=== PATIENT | female | born 1970 | race American Indian/Alaskan Native ===

== ENCOUNTER 2017-11-15 11:08 | Emergency (ER) | payer BC, OTHER ==
[2017-11-15 11:52] VITALS: O2SAT 98; BMI 39.2
--- NOTE | 2017-11-15 12:01 | ED PDOC ---
Arrival/HPI - General Chief Complaint: Lower Extremity Problem/Injury Time Seen by Provider: 11/15/17 11:43 Historian: Patient - History of Present Illness Narrative History of Present Illness (Text): 11/15/17 11:59 47yo female with pmhx of hypertension, Diabetes who present with right foot pain. States pain is usually with weight bearing after sitting for a while. States she takes Tylenol without relieve. Report tripping over uneven side walk and injuring same foot. States the pain became worse after the trauma. Denies any other complaint. Past Medical History - Provider Review Nursing Documentation Reviewed: Yes - Infectious Disease Hx of Infectious Diseases: None - Tetanus Immunization Tetanus Immunization: Unknown - Cardiac Hx Hypertension: Yes - Pulmonary Hx Respiratory Disorders: No - Neurological Hx Neurological Disorder: No - HEENT Hx HEENT Disorder: No - Renal Hx Renal Disorder: No - Endocrine/Metabolic Hx Endocrine Disorders: Yes Hx Diabetes Mellitus Type 2: Yes - Hematological/Oncological Hx Blood Disorders: No - Integumentary Hx Dermatological Disorder: No - Musculoskeletal/Rheumatological Hx Musculoskeletal Disorders: No - Gastrointestinal Hx Gastrointestinal Disorders: No - Genitourinary/Gynecological Hx Genitourinary Disorders: No - Psychiatric Hx Depression: No Hx Substance Use: No - Surgical History Hx Section: Yes Hx Dilation and Curettage: Yes - Anesthesia Hx Anesthesia: Yes Hx Anesthesia Reactions: No Hx Malignant Hyperthermia: No - Suicidal Assessment Feels Threatened In Home Enviroment: No Family/Social History - Physician Review Nursing Documentation Reviewed: Yes Family/Social History: Unknown Family HX Smoking Status: Never Smoked Hx Alcohol Use: No Hx Substance Use: No Hx Substance Use Treatment: No Allergies/Home Meds Allergies/Adverse Reactions: Allergies No Known Allergies Allergy (Verified 11/15/17 11:45) Home Medications: Home Meds Medication Instructions Recorded Confirmed Glimepiride 4 mg PO DAILY 08/26/15 05/03/17 SITagliptin [Januvia] 25 mg PO DAILY 05/03/17 05/03/17 Valsartan 320 mg PO DAILY 05/03/17 05/03/17 Review of Systems - Physician Review All systems were reviewed & negative as marked: Yes - Review of Systems Constitutional: Normal Eyes: Normal ENT: Normal Respiratory: Normal Cardiovascular: Normal Gastrointestinal: Normal Genitourinary Female: Normal Musculoskeletal: Arthralgias (right foot pain) Skin: Normal Neurological: Normal Endocrine: Normal Hemo/Lymphatic: Normal Psychiatric: Normal Physical Exam Vital Signs Reviewed: Yes Vital Signs Temp Pulse Resp BP Pulse Ox 11/15/17 12:09 181/110 H 11/15/17 11:45 97.7 F 81 18 181/110 H 98 Temperature: Afebrile Blood Pressure: Hypertensive Pulse: Regular Respiratory Rate: Normal Appearance: Positive for: Well-Appearing, Non-Toxic, Comfortable Pain Distress: None Mental Status: Positive for: Alert and Oriented X 3 - Systems Exam Head: Present: Atraumatic, Normocephalic Pupils: Present: PERRL Extroacular Muscles: Present: EOMI Conjunctiva: Present: Normal Mouth: Present: Moist Mucous Membranes Neck: Present: Normal Range of Motion Respiratory/Chest: Present: Clear to Auscultation, Good Air Exchange. No: Respiratory Distress, Accessory Muscle Use Cardiovascular: Present: Regular Rate and Rhythm, Normal S1, S2. No: Murmurs Abdomen: No: Tenderness, Distention, Peritoneal Signs Back: Present: Normal Inspection Upper Extremity: Present: Normal Inspection. No: Cyanosis, Edema Lower Extremity: Present: NORMAL PULSES, Normal ROM, Tenderness (Mid right plantar right foot), Neurovascularly Intact. No: Edema, Swelling, Erythema, Deformity, Temperature Abnormalties Neurological: Present: GCS=15, CN II-XII Intact, Speech Normal Skin: Present: Warm, Dry, Normal Color. No: Rashes Psychiatric: Present: Alert, Oriented x 3, Normal Insight, Normal Concentration Medical Decision Making ED Course and Treatment: 11/15/17 12:47 PT in ED for right foot pain. She was not in any distress. Pedis pulse was intact and they was no sign of infection. right foot xray - heel spur noted, otherwise xray was unremarkable. Pt report history of HTN. States she did not take her antihypertensive in 2days. She denies headache, focal weakness, slurred speech, chest pain, SOB, dizziness, any other complaint. Antihypertensive was given in ED. she was strongly advised to become more complaint with her medication. Will DC her with a rx of Ibuprofen. She have appointment with a P - RAD Interpretation Radiology Orders: 11/15/17 11:58 FOOT RIGHT 3 VIEWS ROUTINE [RAD] Stat - Medication Orders Current Medication Orders: Discontinued Medications Amlodipine Besylate (Norvasc) 10 mg PO STAT STA Stop: 11/15/17 12:04 Last Admin: 11/15/17 12:09 Dose: 10 mg MAR Blood Pressure Document 11/15/17 12:09 [facility] (Rec: 11/15/17 12:09 [facility] [id number]) Blood Pressure Blood Pressure (100/60-150/90) 181/110 Ketorolac Tromethamine (Toradol) 60 mg IM STAT STA Stop: 11/15/17 11:59 Last Admin: 11/15/17 12:08 Dose: 60 mg MAR Pain Assessment Document 11/15/17 12:08 [facility] (Rec: 11/15/17 12:09 LM [id number]) Pain Reassessment Is this a pain reassessment? No Sleep Is patient sleeping during reassessment? No Presence of Pain Presence of Pain Yes Pain Scale Used Pain Scale Used Numeric Location Left, Right or Bilateral Right Pain Location Body Site Foot Description Description Throbbing Intensity of Pain at present 9 IM Administration Charges Document 11/15/17 12:08 [facility] (Rec: 11/15/17 12:09 [facility] [id number]) Injection Site MAR Injection Site Left Arm Charges for Administration # of IM Administrations 1 Disposition/Present on Arrival - Present on Arrival Any Indicators Present on Arrival: No History of DVT/PE: No History of Uncontrolled Diabetes: Yes Urinary Catheter: No History of Decub. Ulcer: No History Surgical Site Infection Following: None - Disposition Have Diagnosis and Disposition been Completed?: Yes Diagnosis: Foot pain Disposition: HOME/ ROUTINE Disposition Time: 13:00 Patient Plan: Discharge Condition: STABLE Discharge Instructions (ExitCare): Heel Pain (Caused by Plantar Fasciitis), Muscle and Bone Pain (DC) Additional Instructions: Follow up with your Setup Operator Return to ED for any new or worsening symptoms Prescriptions: Ibuprofen [Motrin Tab] 600 mg PO Q6 #15 tab Referrals: Jose Pringle MD [Primary Care Provider] - Follow up with primary Forms: [employer] (Spanish)
--- NOTE | 2017-11-15 12:40 | RAD ---
PROCEDURE: Right Foot Radiographs. HISTORY: foot pain COMPARISON: None. FINDINGS: BONES: Normal. No fracture. JOINTS: Normal. SOFT TISSUES: Normal. OTHER FINDINGS: None. IMPRESSION: Normal right foot radiographs.
[2017-11-15 14:05] VITALS: BP 157/95; PULSE 75; RESP 17; TEMP 97.9
== END 2017-11-15 14:20 | disposition home or self-care (01) ==
LOC: ED 11:08
DX: M79.671 Pain in right foot (principal)
CPT/HCPCS: 73630; 96372; 99283; J1885

== ENCOUNTER 2018-10-02 08:47 | Inpatient (IN) | payer OTHER ==
[2018-10-02 08:52] VITALS: BMI 37.0
[2018-10-02] MEDS ORDERED: Sodium Chloride 0.9% 1,000 ML IV SCH (09:00)
--- NOTE | 2018-10-02 09:00 | ED PDOC ---
Arrival/HPI - General Time Seen by Provider: 10/02/18 08:49 - History of Present Illness Narrative History of Present Illness (Text): 10/02/18 09:00 48 f with hx hypertension and diabetes mellitus presents to the ED with acute left sided weakness and numbness, acute speech disturbance, left sided face numbness. Patient states she fell asleep last night feeling well, woke up in the middle of night to urinate but she is not sure what time, woke up with the above mentioned symptoms. Patient reports a posterior headache which she noticed when she woke up. Patient denies visual disturbance, no chest pain, no and pain, no prior hx of similiar symptoms. Patient also reports focal left upper chest wall pain, described as sharp, similiar to previous experienced pain. Patient accompanied by brother to the ED and he has corroborated the patient's story. 10/02/18 09:49 Past Medical History - Infectious Disease Hx of Infectious Diseases: None - Tetanus Immunization Tetanus Immunization: Unknown - Reproductive Menopause: No - Cardiac Hx Hypertension: Yes - Pulmonary Hx Respiratory Disorders: No - Neurological Hx Neurological Disorder: No - HEENT Hx HEENT Disorder: No - Renal Hx Renal Disorder: No - Endocrine/Metabolic Hx Endocrine Disorders: Yes Hx Diabetes Mellitus Type 2: Yes - Hematological/Oncological Hx Blood Disorders: No - Integumentary Hx Dermatological Disorder: No - Musculoskeletal/Rheumatological Hx Musculoskeletal Disorders: No - Gastrointestinal Hx Gastrointestinal Disorders: No - Genitourinary/Gynecological Hx Genitourinary Disorders: No - Psychiatric Hx Depression: No Hx Substance Use: No - Surgical History Hx Section: Yes Hx Dilation and Curettage: Yes - Anesthesia Hx Anesthesia: Yes Hx Anesthesia Reactions: No Hx Malignant Hyperthermia: No - Suicidal Assessment Feels Threatened In Home Enviroment: No Family/Social History Family/Social History: Unknown Family HX Smoking Status: Never Smoked Hx Alcohol Use: No Hx Substance Use: No Hx Substance Use Treatment: No Allergies/Home Meds Allergies/Adverse Reactions: Allergies No Known Allergies Allergy (Verified 11/15/17 11:45) Home Medications: Home Meds Medication Instructions Recorded Confirmed Unobtainable 10/02/18 10/02/18 Review of Systems - Physician Review All systems were reviewed & negative as marked: Yes Physical Exam - Physical Exam Narrative Physical Exam (Text): 10/02/18 09:03 Gen: VS reviewed, alert, well developed, well nourished, nontoxic, mild dist ress Eye: EOMI, PERRL Neck: no JVD, supple, no adenopathy CV: regular rate, regular rhythm, no rubs,no murmur, S1, S2, there is moderate clearly reproducible chest wall tenderness Pulm: no distress, clear to auscultation, no wheeze, no rhonchi, breath sounds equal, no rales Abd: soft, nontender, no guarding, no rebound, no rigidity Ext: no edema Skin: good color, no rash, no cyanosis Psych: responds appropriately to questions, normal affect Neuro: oriented x3,speech is clear but muted in tone, only some words are slurred, motor intact, diminished sensation in the left face and left arm, norm al sensation in the left leg, ataxia in the left upper arm, 4/5 strength in the left upper arm 10/02/18 09:49 Vital Signs Pulse Resp BP Pulse Ox 10/02/18 08:47 88 18 166/84 H 96 Medical Decision Making ED Course and Treatment: 10/02/18 09:05 patient seen immediately upon arrival. code stroke called immediately upon arrival. workup for CVA. 10/02/18 09:[address] gordon, neurologist, agrees that the patient is not a candidate for thrombolysis especially since there is no concrete last well known time. recommends empiric antiplatelet therapy, tx for migraine depakote 500mg iv, decadron 10mg iv ddx including but not limited to cva, complex migraine headache 10/02/18 10:01 it was reported to me that the patient failed swallow eval at bedside 10/02/18 10:[address] albrecht, patient to be admitte rule out cva. consult to dr. gordon. - RAD Interpretation Narrative RAD Interpretations (Text): 10/02/18 09:45 Creator : Paul Boothe MD Dictator : Paul Boothe MD Sales And Business Development Manager : Manufacturing Engineer Automotive : Paul Boothe MD Approver2 : Report Date : 10/02/2018 09:23:24 My Comment : Date of service: 10/02/2018 PROCEDURE: CT HEAD WITHOUT CONTRAST. HISTORY: Code Stroke COMPARISON: 12/22/2015 TECHNIQUE: Axial computed tomography images were obtained through the head/brain without intravenous contrast. Radiation dose: Total exam DLP = 842.71 mGy-cm. This CT exam was performed using one or more of the following dose reduction techniques: Automated exposure control, adjustment of the mA and/or kV according to patient size, and/or use of iterative reconstruction technique. FINDINGS: HEMORRHAGE: No intracranial hemorrhage. BRAIN: No mass effect or edema. No atrophy or chronic microvascular ischemic changes. VENTRICLES: Unremarkable. No hydrocephalus. CALVARIUM: Unremarkable. PARANASAL SINUSES: Unremarkable as visualized. No significant inflammatory changes. MASTOID AIR CELLS: Unremarkable as visualized. No inflammatory changes. OTHER FINDINGS: The report concurs with the preliminary [facility] report IMPRESSION: No acute intracranial findings 10/02/18 09:47 Date of service: 10/02/2018 PROCEDURE: CT Angiography of the neck with contrast HISTORY: code stroke COMPARISON: None. TECHNIQUE: Contiguous axial images of the neck were obtained from the level of the skull- base to the superior mediastinum in the arteriographic phase of enhancement. Coronal and sagittal reformats or also generated. IV contrast dose: 150 cc of Omni 350 Radiation dose: Total exam DLP = 525.83 mGy-cm. This CT exam was performed using one or more of the following dose reduction techniques: Automated exposure control, adjustment of the mA and/or kV according to patient size, and/or use of iterative reconstruction technique. FINDINGS: RIGHT CAROTID ARTERIES: There is a calcified eccentric plaque producing a mild degree of stenosis in the proximal internal carotid bilaterally. LEFT CAROTID ARTERIES: There is a calcified eccentric plaque producing a mild degree of stenosis in the proximal internal carotid bilaterally. VERTEBRAL ARTERIES: Right Vertebral Artery: Normal. Left Vertebral Artery: Normal. OTHER FINDINGS: no aortic atherosclerotic calcification or mural plaque present. IMPRESSION: There is a calcified eccentric plaque producing a mild degree of stenosis in the proximal internal carotid bilaterally. CT Angiography of the Brain. HISTORY: code stroke COMPARISON: None available. TECHNIQUE: CT angiography of the intracranial arteries was performed. Coronal and sagittal maximum intensity projection reformated images were generated. Radiation dose: Total exam DLP = 525.83 mGy-cm. This CT exam was performed using one or more of the following dose reduction techniques: Automated exposure control, adjustment of the mA and/or kV according to patient size, and/or use of iterative reconstruction technique. FINDINGS: INTERNAL CEREBRAL ARTERIES: Unremarkable. The skull base, petrous, cavernous and supraclinoid segments are bilaterally widely patent. ANTERIOR CEREBRAL ARTERIES: Unremarkable. A1 and A2 segments are widely patent. Smaller distal branches unremarkable, as visualized. MIDDLE CEREBRAL ARTERIES: Unremarkable. M1 and M2 segments are widely patent. Perisylvian branches grossly symmetric. POSTERIOR CIRCULATION: Basilar Artery: Unremarkable. Distal Vertebral Arteries: Unremarkable. Posterior Cerebral Arteries: Unremarkable. Posterior Inferior Cerebellar Arteries: Unremarkable. ANEURYSM/ VASCULAR MALFORMATIONS: None. OTHER FINDINGS: None. IMPRESSION: Unremarkable CT Angiography of the Brain. 10/02/18 09:48 cxr my read: no focal infiltrate, no wide mediastinum, cardiomegaly Radiology Orders: 10/02/18 08:55 CTA HEAD/NECK CODE STROKE [CT] Stat HEAD W/O (CODE STROKE) [CT] Stat CHEST PORTABLE [RAD] Stat Personnel And Payroll Technician: ED Physician, Radiologist - EKG Interpretation EKG Interpretation (Text): 10/02/18 09:49 ekg my read: nsr at 86 bpm, nml qrs, nml axis, no acute sttw abn Interpreted by ED Physician: Yes - Medication Orders Current Medication Orders: Sodium Chloride (Sodium Chloride 0.9%) 1,000 mls @ 100 mls/hr IV .Q10H [facility] NIHSS Scale ([place]) Time Performed: 08:58 - How Severe is the Stoke Baseline Level of Consciousness: 0=Alert LOC to Questions: 0=Both comments correct LOC to commands: 0=Obeys both correctly Best Gaze: 0=Normal Visual: 0=No visual loss Facial: 0=Normal Motor Arm - Left: 1=Drift noted before 10 sec Motor Arm - Right: 0=No drift Motor Leg - Left: 0=No drift Motor Leg - Right: 0=No drift Limb Ataxia: 1=Present Upper or Lower Sensory: 1=Mild to moderate loss Best Language: 0=No aphasia Dysarthia: 1=Mild to moderate slurring Extinction & Inattention (Neglect): 0=Normal, no object Score: 4 Risk Level: Minor Stroke Risk rTPA Inclusion/Exclusion - Refusal of Treatment Patient Refused Treatment: No - Inclusion Criteria for Altepase Patient is 18 years or Older: Yes The Clinical Diagnosis of Ischemic Stroke That is Causing a Potentially Disabling Neurological Deficit: Yes Time of Onset is Well Established to be Less Than 270 Minute Before Treatment Would Begin: No Risk/Benefit Discussed With Patient/Family Member Present: Yes Disposition/Present on Arrival - Present on Arrival Any Indicators Present on Arrival: No History of DVT/PE: No History of Uncontrolled Diabetes: Yes Urinary Catheter: No History of Decub. Ulcer: No History Surgical Site Infection Following: None - Disposition Have Diagnosis and Disposition been Completed?: Yes Diagnosis: CVA (cerebral vascular accident) Disposition: HOSPITALIZED Disposition Time: 10:35 Patient Plan: Admission Patient Problems: Current Active Problems Problem Status Onset CVA (cerebral vascular accident) Acute Transient ischemic attack Acute Condition: GUARDED
[2018-10-02 09:25] LABS: BASO # 0.01 K/mm3 (0.0-2.0); BASO % 0.2 % (0.0-3.0); EOS % 0.3 % (1.5-5.0); HEMOGLOBIN 12.1 g/dL (12.0-16.0); LYMPH # 1.4 (1.2-3.4); LYMPH % 21.1 % (22.0-35.0); MEAN CELL VOLUME 81.1 fl (80.0-105.0); MEAN CORPUSCULAR HEMOGLOBIN 27.5 pg (25.0-35.0); MEAN CORPUSCULAR HGB CONC 33.9 g/dl (31.0-37.0); MEAN PLATELET VOLUME 9.3 fl (7.0-11.0); MONO # 0.4 (0.1-0.6); MONO % 5.4 % (1.0-6.0); RBC 4.4 10^6/uL (3.5-6.1); RED CELL DISTRIBUTION WIDTH 12.2 % (11.5-14.5); WHITE BLOOD COUNT 6.5 10^3/uL (4.5-11.0)
--- NOTE | 2018-10-02 09:27 | CT ---
Date of service: 10/02/2018 PROCEDURE: CT HEAD WITHOUT CONTRAST. HISTORY: Code Stroke COMPARISON: 12/22/2015 TECHNIQUE: Axial computed tomography images were obtained through the head/brain without intravenous contrast. Radiation dose: Total exam DLP = 842.71 mGy-cm. This CT exam was performed using one or more of the following dose reduction techniques: Automated exposure control, adjustment of the mA and/or kV according to patient size, and/or use of iterative reconstruction technique. FINDINGS: HEMORRHAGE: No intracranial hemorrhage. BRAIN: No mass effect or edema. No atrophy or chronic microvascular ischemic changes. VENTRICLES: Unremarkable. No hydrocephalus. CALVARIUM: Unremarkable. PARANASAL SINUSES: Unremarkable as visualized. No significant inflammatory changes. MASTOID AIR CELLS: Unremarkable as visualized. No inflammatory changes. OTHER FINDINGS: The report concurs with the preliminary [facility] report IMPRESSION: No acute intracranial findings
[2018-10-02 09:29] LABS: INR 1.14; PARTIAL THROMBOPLASTIN TIME 32.2 Seconds (26.9-38.3); PROTHROMBIN TIME 12.9 SECONDS (9.4-12.5)
--- NOTE | 2018-10-02 09:40 | CT ---
Date of service: 10/02/2018 PROCEDURE: CT Angiography of the neck with contrast HISTORY: code stroke COMPARISON: None. TECHNIQUE: Contiguous axial images of the neck were obtained from the level of the skull-base to the superior mediastinum in the arteriographic phase of enhancement. Coronal and sagittal reformats or also generated. IV contrast dose: 150 cc of Omni 350 Radiation dose: Total exam DLP = 525.83 mGy-cm. This CT exam was performed using one or more of the following dose reduction techniques: Automated exposure control, adjustment of the mA and/or kV according to patient size, and/or use of iterative reconstruction technique. FINDINGS: RIGHT CAROTID ARTERIES: There is a calcified eccentric plaque producing a mild degree of stenosis in the proximal internal carotid bilaterally. LEFT CAROTID ARTERIES: There is a calcified eccentric plaque producing a mild degree of stenosis in the proximal internal carotid bilaterally. VERTEBRAL ARTERIES: Right Vertebral Artery: Normal. Left Vertebral Artery: Normal. OTHER FINDINGS: no aortic atherosclerotic calcification or mural plaque present. IMPRESSION: There is a calcified eccentric plaque producing a mild degree of stenosis in the proximal internal carotid bilaterally. CT Angiography of the Brain. HISTORY: code stroke COMPARISON: None available. TECHNIQUE: CT angiography of the intracranial arteries was performed. Coronal and sagittal maximum intensity projection reformated images were generated. Radiation dose: Total exam DLP = 525.83 mGy-cm. This CT exam was performed using one or more of the following dose reduction techniques: Automated exposure control, adjustment of the mA and/or kV according to patient size, and/or use of iterative reconstruction technique. FINDINGS: INTERNAL CEREBRAL ARTERIES: Unremarkable. The skull base, petrous, cavernous and supraclinoid segments are bilaterally widely patent. ANTERIOR CEREBRAL ARTERIES: Unremarkable. A1 and A2 segments are widely patent. Smaller distal branches unremarkable, as visualized. MIDDLE CEREBRAL ARTERIES: Unremarkable. M1 and M2 segments are widely patent. Perisylvian branches grossly symmetric. POSTERIOR CIRCULATION: Basilar Artery: Unremarkable. Distal Vertebral Arteries: Unremarkable. Posterior Cerebral Arteries: Unremarkable. Posterior Inferior Cerebellar Arteries: Unremarkable. ANEURYSM/ VASCULAR MALFORMATIONS: None. OTHER FINDINGS: None. IMPRESSION: Unremarkable CT Angiography of the Brain.
[2018-10-02 09:47] LABS: BLOOD UREA NITROGEN 11 mg/dL (7-21); CALCIUM 9.2 mg/dL (8.4-10.5); GFR NON-AFRICAN AMERICAN > 60
[2018-10-02 09:48] LABS: ALB/GLOB RATIO 1.1 (1.1-1.8); ALT/SGPT 23 U/L (7-56); AST/SGOT 25 U/L (14-36); HDL CHOLESTEROL 50 mg/dL (29-60)
[2018-10-02] MEDS ORDERED: Valproate 500 MG in Sodium Chloride 0.9% 100 ML IVPB ONE (09:53)
[2018-10-02 10:00] LABS: LDL CHOLESTEROL 111 mg/dL (0-129)
[2018-10-02 10:12] LABS: TROPONIN I < 0.01 ng/mL
--- NOTE | 2018-10-02 10:32 | RAD ---
Date of service: 10/02/2018 HISTORY: Code Stroke COMPARISON: No prior. TECHNIQUE: 1 view obtained. FINDINGS: LUNGS: No active pulmonary disease. PLEURA: No significant pleural effusion identified, no pneumothorax apparent. CARDIOVASCULAR: No aortic atherosclerotic calcification present. Normal cardiac size. No pulmonary vascular congestion. OSSEOUS STRUCTURES: No significant abnormalities. VISUALIZED UPPER ABDOMEN: Normal. OTHER FINDINGS: None. IMPRESSION: No active disease.
--- NOTE | 2018-10-02 16:45 | CP.PCM.CON ---
History of Present Illness - History of Present Illness History of Present Illness: Neurology Consultation Note: Consult requested by Dr. Mckenzie Ms. Story is a 48-year-old woman with a past medical history of DM, who woke up this morning with a headache and left side numbness. She was not a candidate for IV tPA due to being outside the 4.5 hour time window. Non-contrast CT head and CTA of the head/neck were normal. BP was elevated to 166/84 mm Hg on arrival. Her headache was treated with decadron, depakote and magnesium sulfate. She was given aspirin, plavix and lipitor in the ED. Since then, the patient's symptoms have completely resolved. Review of Systems - Constitutional Constitutional: As Per HPI - EENT Eyes: absent: As Per HPI, Blind Spots, Blurred Vision, Change in Vision, Decreased Night Vision, Diplopia, Discharge, Dry Eye, Exophthalmos, Floaters, Irritation, Itchy Eyes, Loss of Peripheral Vision, Pain, Photophobia, Requires Corrective Lenses, Sees Flashes, Spots in Vision, Tunnel Vision, Other Visual Disturbances, Loss of Vision, Other Ears: absent: As Per HPI, Decreased Hearing, Ear Discharge, Ear Pain, Tinnitus, Abnormal Hearing, Disequilibrium, Dizziness, Other Nose/Mouth/Throat: absent: As Per HPI, Epistaxis, Nasal Congestion, Nasal Discharge, Nasal Obstruction, Nasal Trauma, Nose Pain, Post Nasal Drip, Sinus Pain, Sinus Pressure, Bleeding Gums, Change in Voice, Dental Pain, Dry Mouth, Dysphagia, Halitosis, Hoarsness, Lip Swelling, Mouth Lesions, Mouth Pain, Odynophagia, Sore Throat, Throat Swelling, Tongue Swelling, Facial Pain, Neck Pain, Neck Mass, Other - Cardiovascular Cardiovascular: absent: As Per HPI, Acrocyanosis, Chest Pain, Chest Pain at Rest, Chest Pain with Activity, Claudication, Diaphoresis, Dyspnea, Dyspnea on Exertion, Edema, Irregular Heart Rhythm, Pain Radiating to Arm/Neck/Jaw, Leg Edema, Leg Ulcers, Lightheadedness, Orthopnea, Palpitations, Paroxysmal Nocturnal Dyspnea, Pedal Edema, Radiating Pain, Rapid Heart Rate, Slow Heart Rate, Syncope, Other - Respiratory Respiratory: absent: As Per HPI, Cough, Dyspnea, Hemoptysis, Dyspnea on Exertion, Wheezing, Snoring, Stridor, Pain on Inspiration, Chest Congestion, Excessive Mucous Production, Change in Mucous Color, Pain with Coughing, Other - Gastrointestinal Gastrointestinal: absent: As Per HPI, Abdominal Pain, Belching, Bloating, Change in Bowel Habits, Change in Stool Character, Coffee Ground Emesis, Constipation, Cramping, Diarrhea, Dyspepsia, Dysphagia, Early Satiety, Excessive Flatus, Fecal Incontinence, Heartburn, Hematemesis, Hematochezia, Loose Stools, Melena, Nausea, Odynophagia, Temesmus, Vomiting, Other - Genitourinary Genitourinary: absent: As Per HPI, Change in Urinary Stream, Difficulty Urinating, Dysuria, Flank Pain, Hematuria, Pyuria, Nocturia, Urinary Inc ontinence, Urinary Frequency, Urinary Hesitance, Urinary Urgency, Voiding Freq/Small Amts, Freq UTI, Hx Renal/Bladder Calculi, Hx /Renal Surgery, Bladder Distension, Other - Musculoskeletal Musculoskeletal: absent: As Per HPI, Abnormal Gait, Arthralgias, Atrophy, Back Pain, Deformity, Joint Swelling, Limited Range of Motion, Loss of Height, Muscle Cramps, Muscle Weakness, Myalgias, Neck Pain, Numbness, Radiating Pain into Limb, Stiffness, Tingling, Other - Integumentary Integumentary: absent: As Per HPI, Acne, Alopecia, Bleeding Lesions, Change in Hair, Change in Nails, Change in Pigmentation, Changing Lesions, Dry Skin, Erythema, Furuncle, Hirsutism, Lesions, New Lesions, Non-Healing Lesions, Photosensitivity, Pruritus, Rash, Skin Pain, Skin Ulcer, Sores, Striae, Swelling, Unusual Bruising, Wounds, Jaundice, Other - Neurological Neurological: As Per HPI - Psychiatric Psychiatric: absent: As Per HPI, Abnormal Sleep Pattern, Anhedonia, Anxiety, Auditory Hallucinations, Behavioral Changes, Change in Appetite, Change in Libido, Confusion, Depression, Difficulty Concentrating, Hallucinations, Homicidal Ideation, Hopelessness, Irritability, Memory Loss, Mood Swings, Panic Attacks, Paranoia, Suicidal Ideation, Visual Hallucinations, Tactile Hallucinations, Other - Endocrine Endocrine: absent: As Per HPI, Change in Body Appearance, Change in Libido, Cold Intolorance, Deepening of Voice, Excessive Sweating, Fatigue, Flushing, Heat Intolorance, Increase in Ring/Shoe/Hat Size, Palpitations, Polydipsia, Polyphagia, Polyuria, Other - Hematologic/Lymphatic Hematologic: absent: As Per HPI, Easy Bleeding, Easy Bruising, Lymphadenopathy, Other Past Patient History - Infectious Disease Hx of Infectious Diseases: None - Tetanus Immunizations Tetanus Immunization: Unknown - Past Medical History & Family History Past Medical History?: Yes - Past Social History Smoking Status: Never Smoked - CARDIAC Hx Hypertension: Yes - PULMONARY Hx Respiratory Disorders: No - NEUROLOGICAL Hx Neurological Disorder: No - HEENT Hx HEENT Problems: No - RENAL Hx Chronic Kidney Disease: No - ENDOCRINE/METABOLIC Hx Diabetes Mellitus Type 2: Yes - HEMATOLOGICAL/ONCOLOGICAL Hx Blood Disorders: No - INTEGUMENTARY Hx Dermatological Problems: No - MUSCULOSKELETAL/RHEUMATOLOGICAL Hx Musculoskeletal Disorders: No Hx Falls: No - GASTROINTESTINAL Hx Gastrointestinal Disorders: Yes (polys) Other/Comment: polyps - GENITOURINARY/GYNECOLOGICAL Hx Genitourinary Disorders: No - PSYCHIATRIC Hx Psychophysiologic Disorder: No Hx Substance Use: No - SURGICAL HISTORY Hx Surgeries: Yes () - ANESTHESIA Hx Anesthesia: Yes Hx Anesthesia Reactions: No Hx Malignant Hyperthermia: No Meds Allergies/Adverse Reactions: Allergies Allergy/AdvReac Type Severity Reaction Status Date / Time No Known Allergies Allergy Verified 11/15/17 11:45 - Medications Medications: Current Medications Atorvastatin Calcium (Lipitor) 10 mg PO DIN KSENIA Sodium Chloride (Sodium Chloride 0.9%) 1,000 mls @ 100 mls/hr IV .Q10H KSENIA Last Admin: 10/02/18 09:21 Dose: 100 mls/hr Results - Vital Signs Recent Vital Signs: Last Vital Signs Temp 98.7 F 10/02/18 11:51 Pulse 90 10/02/18 12:29 Resp 18 10/02/18 12:29 BP 141/77 10/02/18 11:51 Pulse Ox 98 10/02/18 11:51 - Labs Result Diagrams: 10/02/18 09:11 10/02/18 09:11 Labs: Laboratory Results - last 24 hr 10/02/18 10/02/18 10/02/18 08:58 09:11 09:11 WBC 6.5 RBC 4.40 Hgb 12.1 Hct 35.7 L MCV 81.1 MCH 27.5 MCHC 33.9 RDW 12.2 Plt Count 377 MPV 9.3 Neut % (Auto) 73.0 H Lymph % (Auto) 21.1 L Ware % (Auto) 5.4 Eos % (Auto) 0.3 L Baso % (Auto) 0.2 Lymph # (Auto) 1.4 Ware # (Auto) 0.4 Eos # (Auto) 0.0 Baso # (Auto) 0.01 Absolute Neuts (auto) 4.78 PT 12.9 H INR 1.14 APTT 32.2 Sodium Potassium Chloride Carbon Dioxide Anion Gap BUN Creatinine Est GFR ( Amer) Est GFR (Non-Af Amer) POC Glucose (mg/dL) 209 H Random Glucose Hemoglobin A1c Calcium Total Bilirubin AST ALT Alkaline Phosphatase Troponin I Total Protein Albumin Globulin Albumin/Globulin Ratio Triglycerides Cholesterol LDL Cholesterol Direct HDL Cholesterol Blood Type Antibody Screen BBK History Checked 10/02/18 10/02/18 10/02/18 09:11 09:11 09:14 WBC RBC Hgb Hct MCV MCH MCHC RDW Plt Count MPV Neut % (Auto) Lymph % (Auto) Ware % (Auto) Eos % (Auto) Baso % (Auto) Lymph # (Auto) Ware # (Auto) Eos # (Auto) Baso # (Auto) Absolute Neuts (auto) PT INR APTT Sodium 136 Potassium 4.1 Chloride 100 Carbon Dioxide 25 Anion Gap 14 BUN 11 Creatinine 0.8 Est GFR ( Amer) > 60 Est GFR (Non-Af Amer) > 60 POC Glucose (mg/dL) Random Glucose 223 H Hemoglobin A1c 11.9 H Calcium 9.2 Total Bilirubin 0.8 AST 25 ALT 23 Alkaline Phosphatase 94 Troponin I < 0.01 Total Protein 7.6 Albumin 4.0 Globulin 3.6 Albumin/Globulin Ratio 1.1 Triglycerides 91 Cholesterol 196 LDL Cholesterol Direct 111 HDL Cholesterol 50 Blood Type B POSITIVE Antibody Screen Negative BBK History Checked Patient has bt 10/02/18 16:00 WBC RBC Hgb Hct MCV MCH MCHC RDW Plt Count MPV Neut % (Auto) Lymph % (Auto) Ware % (Auto) Eos % (Auto) Baso % (Auto) Lymph # (Auto) Ware # (Auto) Eos # (Auto) Baso # (Auto) Absolute Neuts (auto) PT INR APTT Sodium Potassium Chloride Carbon Dioxide Anion Gap BUN Creatinine Est GFR ( Amer) Est GFR (Non-Af Amer) POC Glucose (mg/dL) 400 H* Random Glucose Hemoglobin A1c Calcium Total Bilirubin AST ALT Alkaline Phosphatase Troponin I Total Protein Albumin Globulin Albumin/Globulin Ratio Triglycerides Cholesterol LDL Cholesterol Direct HDL Cholesterol Blood Type Antibody Screen BBK History Checked Assessment & Plan (1) Transient ischemic attack Assessment and Plan: The patient does not currently have any symptoms. Her headache is gone, speech is normal and she has full sensation of the left side. She may have had a TIA or possibly a complicated migraine headache. Will continue dual antiplatelet therapy, high dose statin for now and obtain an MRI of the brain without contrast for further evaluation. Thank you for this consultation. Status: Acute
--- NOTE | 2018-10-02 17:53 | CARD ---
APPROVED REPORT Date of service: 10/02/2018 EKG Measurement Heart [id number] <Conclusion> Normal sinus rhythm Normal ECG
[2018-10-02] MEDS ORDERED: Insulin Regular 1 UNITS/0.01 ML ML SC ONE (20:05)
[2018-10-02] MEDS ORDERED: Insulin Reg-LOW-Coverage SC SCH (22:00)
[2018-10-02] MEDS: Insulin Reg-LOW-Coverage SC SCH (22:02)
--- NOTE | 2018-10-02 23:03 | CON ---
DATE: 10/02/2018 CONSULT SERVICE: Cardiology. REASON FOR CONSULTATION: Cardiac evaluation, admitted with numbness of the left side of the body, also complains of chest pain (breast pain). BRIEF CLINICAL HISTORY: This is a 48-year-old female with past medical history of obesity, body mass index 37 kg/m2, admitted with complaint of numbness of the left side of the body, who came to the emergency room. While the patient was in 2R also complaining of left breast pain and right breast pain, more so in the left breast. 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 The patient denies any dyspnea on exertion or chest pain on exertion or prior episode of dyspnea on exertion, though she is admitted here with left-side numbness all over the body. Denies any drooling of saliva or denies any double vision or denies any slurring of speech. PAST MEDICAL HISTORY: Significant for hypertension, unknown medication. PAST SURGICAL HISTORY: Significant for section and D and C 6 years ago. History of mammogram found to be according to the patient is a galactocele. FAMILY HISTORY: Significant for coronary artery disease. Father had a stent at the age of 55. SOCIAL HISTORY: Denies any smoking, denies any history of alcohol abuse. CURRENT MEDICATIONS: Anti-hypertensive medication, name unknown. ALLERGIES: NO KNOWN DRUG ALLERGY. REVIEW OF SYSTEMS: As per HPI. PHYSICAL EXAMINATION: GENERAL: Height of the patient 5 feet 3 inches, weight of the patient 209 pounds, body mass index 37 kg/m2. VITAL SIGNS: Temperature afebrile, heart rate 92, blood pressure 141/77. HEENT: PERRLA. Extraocular muscles intact. NECK: Supple. No carotid bruit or thyromegaly. CHEST: Clear to auscultation. HEART: S1 and S2, regular. ABDOMEN: Soft. EXTREMITIES: Clubbing and cyanosis negative. LABORATORY DATA: Blood workup as follows; WBC 6.5, hemoglobin 12, hematocrit 35.7, and platelet count 377. Chemistry shows sodium 137, potassium 4, chloride 100, CO2 of 25, anion gap of 14, BUN 11, creatinine 0.8. Troponin is 0.01 negative. EKG shows sinus tachycardia and was within the normal limits. ASSESSMENT: A 48-year-old obese female with body mass index of 37 kg/m2 with history of galactocele, came in with left-sided numbness, now complaining of chest pain (breast pain in the left side which is tender as well as right side), though the chest pain appears to be atypical, but given the multiple risk factors of coronary artery disease, suggest echocardiography, now lipid profile, TSH, hemoglobin A1c, Neurology evaluation and also suggest a mammogram and followup for galactocele and breast pain. Also suggest a stress test in four weeks as an outpatient. We will put a low dose of Lipitor and aspirin for type of symptoms. Thank you Dr. Mckenzie for providing us the opportunity in taking care of the patient, Carol Story. Raghav Haney MD cc: Tricia Mckenzie MD
--- NOTE | 2018-10-03 04:33 | HP ---
DATE OF EXAM: 10/02/2018 CHIEF COMPLAINT: Chest pain. HISTORY OF PRESENT ILLNESS: Patient is a 48-year-old female. Patient was seen and examined at the bedside on 10/02/2018. Ms. Carol Story is a 48-year-old female with past medical history of hypertension and diabetes mellitus, came to the emergency room with acute left-sided weakness and numbness, acute speech disturbances, left-sided facial numbness, and chest pain. Patient stated that she self sleep last night feeling well, woke up in the middle of night to urinate, but she is not sure what happened. She felt that she has weakness. She reports posterior headache which she noticed when she woke up. Patient denies any visual disturbances. No fever. No chills. No hematuria. No hematochezia. Patient also reports focal left upper chest wall pain described as sharp similar to previous experienced pain. I saw the patient in the telemetry for Cardiology consult. Cardiac enzymes ordered. PAST MEDICAL HISTORY: Hypertension, diabetes mellitus, past history of sections, history of headache. FAMILY HISTORY: Father and mother noncontributory. HABITS: Never smoked. No drugs. No ethanol. ALLERGIES: PATIENT IS NOT ALLERGIC TO ANY MEDICATIONS. HOME MEDICATIONS: Denied. REVIEW OF SYSTEMS: Patient is seen and examined at bedside in her room telemetry, looking comfortable at that moment. No fever no chills. No hematuria. No hematochezia. No weakness. Complaining about left-sided slight chest pain. No headache. No dizziness. PHYSICAL EXAMINATION VITAL SIGNS: Pulse 88, respiratory rate 18, blood pressure 166/84, pulse oximetry 96. HEENT: Head normocephalic, atraumatic. Eyes; PERRLA, extraocular muscles intact, conjunctivae clear. Nose patent. Mucous membrane moist. NECK: Supple. No carotid bruits. No JVD. No thyromegaly. CHEST: Bilaterally symmetrical. HEART: S1 and S2 positive. LUNGS: Clear to auscultation. ABDOMEN: Soft. Bowel sounds present. No organomegaly. EXTREMITIES: No edema. No cyanosis. NEUROLOGIC: The patient is awake and alert. Moving all four extremities. No focal deficits. LABORATORY DATA: White blood cells 6.5, hemoglobin 12.1, hematocrit 35.7, and platelets 377. Sodium 136, potassium 4.1, BUN 11, creatinine 0.8, glucose 209. Hemoglobin A1c is 11.9. Troponin x1 is 0.01. ASSESSMENT AND PLAN: Ms. Carol Story is a 48-year-old lady with diabetes mellitus uncontrolled, hemoglobin A1c is 11.9, came with chest pain and weakness. CAT scan of the head was done. No acute intracranial findings. CAT scan of the head and neck done. Unremarkable CT angio of the brain. MRI is done, results are pending. Seen by the neurologist, Dr. Gopal San and account analyst, Dr. Haney. Patient has a history of diabetes mellitus, headache, left-sided numbness. Patient's symptoms completely resolved. Patient was given aspirin, Plavix, and Lipitor in ED. labeled it like transient ischemic attack. Now, speech is normal, having full sentences. Maybe, patient has complicated migraine as per neurologist. We will continue dual antiplatelet therapy, high-dose statin for now and obtain an MRI of the brain that is done, results are pending. Called Cardiology consult also, awaiting from Dr. Haney's input. Repeat labs. We will follow up. Tricia Mckenzie MD MTDReal
--- NOTE | 2018-10-03 05:20 | MRI ---
Date of service: 10/02/2018 PROCEDURE: MRI BRAIN WITHOUT CONTRAST HISTORY: stroke COMPARISON: Comparison is made with the CT and CTA of the head dated 10/02/2018 TECHNIQUE: Multiplanar, multisequence MR images of the brain were obtained without intravenous contrast enhancement. FINDINGS: HEMORRHAGE: None DWI: No evidence of an acute or early subacute infarction. BRAIN PARENCHYMA: No mass effect or edema. No atrophy or chronic microvascular ischemic changes. VENTRICLES: Unremarkable. No hydrocephalus. CRANIUM: Unremarkable. ORBITS: Grossly unremarkable. PARANASAL SINUSES/MASTOIDS: Clear VASCULAR SYSTEM: Skull base flow voids intact. OTHER FINDINGS: None. IMPRESSION: No evidence of acute infarction. No MRI evidence of acute intracranial hemorrhage mass effect or midline shift. Preliminary report was submitted by [facility] contains concordant findings.
[2018-10-03 07:15] LABS: BLOOD UREA NITROGEN 25 mg/dL (7-21); GFR NON-AFRICAN AMERICAN > 60; HDL CHOLESTEROL 52 mg/dL (29-60)
[2018-10-03 07:23] LABS: LDL CHOLESTEROL 119 mg/dL (0-129)
[2018-10-03 07:27] LABS: IRON 33 ug/dL (45-180)
[2018-10-03 07:30] LABS: HEMOGLOBIN 11.6 g/dL (12.0-16.0); MEAN CELL VOLUME 80.6 fl (80.0-105.0); MEAN CORPUSCULAR HEMOGLOBIN 27.4 pg (25.0-35.0); MEAN PLATELET VOLUME 9.5 fl (7.0-11.0); RBC 4.23 10^6/uL (3.5-6.1); RED CELL DISTRIBUTION WIDTH 12.2 % (11.5-14.5)
[2018-10-03 07:36] LABS: % IRON SATURATION 10 % (20-55); TOTAL IRON BINDING CAPACITY 325 ug/dL (265-497)
--- NOTE | 2018-10-03 08:22 | CP.PCM.PN ---
Subjective - Date & Time of Evaluation Date of Evaluation: 10/03/18 Time of Evaluation: 06:35 - Subjective Subjective: Easily awaken, denies chest pain, no distress Reason for consultation and follow up: Cardiac evaluation of chest pain (breast pain), admitted for numbness of left side of body, ruled out acute coronary syndrome Seen and examined by me and Dr. Haney Objective - Vital Signs/Intake and Output Vital Signs (last 24 hours): Temp Pulse Resp BP Pulse Ox 98 F 83 20 131/75 94 L 10/03/18 06:00 10/03/18 06:00 10/03/18 06:00 10/03/18 06:00 10/03/18 06:00 Intake and Output: 10/03/18 10/03/18 06:59 18:59 Intake Total 350 Output Total 0 Balance 350 - Medications Medications: Current Medications Atorvastatin Calcium (Lipitor) 10 mg PO DIN KSENIA Last Admin: 10/02/18 17:34 Dose: 10 mg Insulin Human Regular (Humulin R Low) 0 units SC [facility]; Protocol Last Admin: 10/02/18 22:02 Dose: 4 units - Labs Labs: 10/03/18 06:30 10/03/18 06:30 PT 12.9 SECONDS (9.4-12.5) H 10/02/18 09:11 INR 1.14 10/02/18 09:11 APTT 32.2 Seconds (26.9-38.3) 10/02/18 09:11 - Constitutional Appears: Non-toxic, No Acute Distress - Head Exam Head Exam: NORMAL INSPECTION, NORMOCEPHALIC - Eye Exam Eye Exam: Normal appearance Pupil Exam: NORMAL ACCOMODATION - ENT Exam ENT Exam: Mucous Membranes Moist, Normal Exam - Respiratory Exam Respiratory Exam: Clear to Ausculation Bilateral, NORMAL BREATHING PATTERN - Cardiovascular Exam Cardiovascular Exam: REGULAR RHYTHM, +S1, +S2 - GI/Abdominal Exam GI & Abdominal Exam: Soft, Normal Bowel Sounds - Extremities Exam Extremities Exam: Full ROM, Normal Capillary Refill - Neurological Exam Neurological Exam: Alert, Awake, Oriented x3 - Psychiatric Exam Psychiatric exam: Normal Affect, Normal Mood - Skin Skin Exam: Dry, Normal Color, Warm Assessment and Plan - Assessment and Plan (Free Text) Assessment: A 48 year old obese female who came in to the ER due to numbness of left side of body. While in 2R she complained of chest pain but more of breast pain. She had mammogram prior to this admission and was told that she has galactocele and milk collected there and causing tenderness. History of hypertension , diabetes, C- section, dilatation and currettage. Troponin negative, CT of head negative for bleeding. Neuro on consult. Atypical chest pain. Ruled out acute coronary syndrome. Given multiple risk factors, Will order echo to evaluate LV function. For stress test today. Plan: No distress For Echo today For stress test today Heart rate controlled Blood pressure controlled Continue current treatment Further recommendations after stress test Lifestyle modification Weight reduction Glucose control Will follow up Plan and treatment discussed with Dr. Haney
[2018-10-03] MEDS: Insulin Reg-LOW-Coverage SC SCH ×2 (08:39→12:31)
[2018-10-03 13:11] LABS: FOLATE 15.8 ng/mL
[2018-10-03] MEDS: Insulin Reg-MEDIUM-Coverage SC SCH ×2 (17:57→21:44)
--- NOTE | 2018-10-03 18:26 | CARD ---
APPROVED REPORT Date of service: 10/03/2018 EXAM: Two-dimensional and M-mode echocardiogram with Doppler and color Doppler. INDICATION Chest Pain 2D DIMENSIONS Left Atrium (2D)3.9 (1.6-4.0cm)IVSd1.3 (0.7-1.1cm) LVDd3.9 (3.9-5.9cm)PWd1.2 (0.7-1.1cm) LVDs2.6 (2.5-4.0cm)FS (%) 34.1 % LVEF (%)63.7 (>50%) M-Mode DIMENSIONS Aortic Root2.70 (2.2-3.7cm)Aortic Cusp Exc.1.80 (1.5-2.0cm) Aortic Valve AoV Peak Qiuegqtl282.0cm/Alex Peak GR.11mmHg Mitral Valve MV E Ebkfcmbd03.5cm/sMV A Ewjdsebz78.4cm/sE/A ratio1.1 TDI E/Lateral E'0.0E/Medial E'0.0 Tricuspid Valve TR Peak [id number]/sRAP [id number] Peak Gr.8mmHg [id number] LEFT VENTRICLE The left ventricle is normal size. There is borderline concentric left ventricular hypertrophy. Proximal septal thickening is noted, but no IHSS. The left ventricular function is normal.[id number]% There is normal LV segmental wall motion. The left ventricular diastolic function is normal. No left ventricle thrombus noted on this study. There is no ventricular septal defect visualized. There is no left ventricular aneurysm. There is no mass noted in the left ventricle. RIGHT VENTRICLE The right ventricle is normal size. There is normal right ventricular wall thickness. The right ventricular systolic function is normal. ATRIA The left atrium size is normal. The right atrium size is normal. The interatrial septum is intact with no evidence for an atrial septal defect. AORTIC VALVE The aortic valve is thickened but opens well. There is trace aortic regurgitation. There is no aortic valvular stenosis. There is no aortic valvular vegetation. MITRAL VALVE The mitral valve is thickened but opens well. Mitral regurgitation is trace. There is no mitral valve stenosis. There is no evidence of mitral valve prolapse. TRICUSPID VALVE The tricuspid valve leaflets are thickened , but open well. There is trace tricuspid regurgitation. There is no tricuspid valve stenosis. There is no tricuspid valve prolapse or vegetation. PULMONIC VALVE The pulmonary valve is normal in structure. There is trace pulmonic valvular regurgitation. There is no pulmonic valvular stenosis. GREAT VESSELS The aortic root is normal in size. The ascending aorta is normal in size. The pulmonary artery is normal. The IVC is normal in size and collapses >50% with inspiration. PERICARDIAL EFFUSION There is no pleural effusion. There is no pericardial effusion. <Conclusion> Normal chamber Size. Ef-60-65% There is trace aortic regurgitation. Mitral regurgitation is trace. There is trace tricuspid regurgitation. There is trace pulmonic valvular regurgitation. The IVC is normal in size and collapses >50% with inspiration. There is no pericardial effusion. no vegetation or thrombus noted.
--- NOTE | 2018-10-04 02:08 | PN ---
DATE: 10/03/2018 SUBJECTIVE: The patient is a 48-year-old female. The patient was seen and examined at the bedside 10/03/2018, looking comfortable. No fever. No chills. No hematuria. No hematochezia. No headache. No dizziness, but complaining about abdominal pain left lower quadrant. PHYSICAL EXAMINATION: VITAL SIGNS: Temperature 98, pulse 83, respiratory rate 20, blood pressure 130/75, and pulse oximetry 94. HEENT: Head; normocephalic and atraumatic. Eyes; PERRLA. Extraocular muscles intact. Conjunctivae clear. Nose patent. Mucous membranes moist. NECK: Supple. No carotid bruits, JVD, or thyromegaly. CHEST: Bilaterally symmetrical. HEART: S1 and S2 positive. LUNGS: Clear to auscultation. ABDOMEN: Soft. Bowel sounds present. No organomegaly. EXTREMITIES: No edema. No cyanosis. NEUROLOGIC: The patient is awake and alert. Moving all four extremities. No focal deficits. MEDICATIONS: Lipitor and insulin. LABORATORY DATA: White blood cell 8, hemoglobin 11.6, hematocrit 34.1, and platelet 418. ASSESSMENT AND PLAN: Ms. Carol Story is a 48-year-old female with anemia, came with chest pain, has hyperglycemia, and uncontrolled diabetes mellitus. The patient was on sliding scale of low algorithm, I put her on medium algorithm now. Chest pain is better. History of hypertension, section, and dilation and curettage. Troponin negative. CT of head is negative for bleeding. Neurology is on the case. According to Cardiology, the patient has atypical chest pain, rule out acute coronary syndrome. Given the multiple risk factors, we will order echocardiogram to evaluate left ventricular function for this stress test today as per Cardiology. According to Dr. Haney, there is no evidence of myocardial infarction or coronary ischemia because recent history of transient ischemic attack, we will hold stress test and has been schedule as outpatient in 4 weeks. Atypical chest pain form the both breasts possibly galactocele, need mammogram and gynecology as outpatient. GI consult with Dr. Sevilla. Repeat lab. We will follow up. Tricia Mckenzie MD MTDReal
--- NOTE | 2018-10-04 06:38 | CP.PCM.PN ---
Subjective - Date & Time of Evaluation Date of Evaluation: 10/04/18 Time of Evaluation: 06:30 - Subjective Subjective: Awake, sitting on chair, denies chest pain, constipated last BM Wednesday Reason for consultation and follow up: Cardiac evaluation of chest pain (breast pain), admitted for numbness of left side of body, ruled out acute coronary syndrome Seen and examined by me and Dr. Haney Objective - Vital Signs/Intake and Output Vital Signs (last 24 hours): Temp Pulse Resp BP Pulse Ox 97.7 F 68 18 135/78 97 10/04/18 05:24 10/04/18 05:24 10/04/18 05:24 10/04/18 05:24 10/04/18 05:24 Intake and Output: 10/03/18 10/04/18 18:59 06:59 Intake Total 1080 Output Total 4 Balance 1076 - Medications Medications: Current Medications Aspirin (Ecotrin) 81 mg PO DAILY [facility] Atorvastatin Calcium (Lipitor) 10 mg PO DIN [facility] Last Admin: 10/03/18 17:57 Dose: 10 mg Famotidine (Pepcid) 40 mg PO HS [facility] Insulin Detemir (Levemir) 24 unit SC HS [facility] Insulin Human Lispro (Humalog Low) 0 units SC ACHS [facility]; Protocol Insulin Human Lispro (Humalog) 12 units SC AC [facility] Lactulose (Enulose) 10 gm PO ONCE STA Stop: 10/04/18 06:36 - Labs Labs: 10/03/18 06:30 10/03/18 06:30 PT 12.9 SECONDS (9.4-12.5) H 10/02/18 09:11 INR 1.14 10/02/18 09:11 APTT 32.2 Seconds (26.9-38.3) 10/02/18 09:11 - Constitutional Appears: Non-toxic, No Acute Distress - Head Exam Head Exam: NORMAL INSPECTION, NORMOCEPHALIC - Eye Exam Eye Exam: Normal appearance Pupil Exam: NORMAL ACCOMODATION - ENT Exam ENT Exam: Mucous Membranes Moist, Normal Exam - Respiratory Exam Respiratory Exam: Decreased Breath Sounds, Clear to Ausculation Bilateral, NORMAL BREATHING PATTERN - Cardiovascular Exam Cardiovascular Exam: +S1, +S2 - GI/Abdominal Exam GI & Abdominal Exam: Soft, Normal Bowel Sounds - Extremities Exam Extremities Exam: Full ROM, Normal Capillary Refill - Neurological Exam Neurological Exam: Alert, Awake, Oriented x3 - Psychiatric Exam Additional comments: upset - Skin Skin Exam: Dry, Normal Color, Warm Assessment and Plan - Assessment and Plan (Free Text) Assessment: A 48 year old obese female who came in to the ER due to numbness of left side of body. While in 2R she complained of chest pain but more of breast pain. She had mammogram prior to this admission and was told that she has galactocele and milk collected there and causing tenderness. History of hypertension , diabetes, C- section, dilatation and currettage. Troponin negative, CT of head negative for bleeding. Neuro on consult. Atypical chest pain. Ruled out acute coronary syndrome. Given multiple risk factors, for stress test in 4 weeks (due to recent TIA). Discontinued telemetry. Constipated. Echo done and showed LVEF 60-65%, trace aortic/mitral/tricuspid/pulmonic valve regurgitation. May discharge if cleared by Neurology. Plan: Echo done and showed LVEF 60-65%, trace aortic/mitral/tricuspid/pulmonic valve regurgitation. May discharge if cleared by Neurology. No distress, constipated Lactulose ordered Stress test in 4 weeks due to recent TIA Heart rate controlled Blood pressure controlled Continue current treatment Discharge planning Lifestyle modification Weight reduction Glucose control Will follow up Plan and treatment discussed with Dr. Haney
--- NOTE | 2018-10-04 07:18 | CON ---
DATE OF CONSULTATION: 10/03/2018 ENDOCRINOLOGY CONSULTATION ROOM: 272. HISTORY OF PRESENT ILLNESS: This is a 48-year-old female with known history of type 2 diabetes and hypertension, presenting here with an acute onset of left-sided weakness in both upper and lower extremities with dysarthria and left-sided facial weakness and left-sided facial palsy, and is now undergoing neurological workup and management and is also being referred for diabetic evaluation because of persistent hyperglycemic accelerations as noted thereof. PAST MEDICAL HISTORY: As mentioned above, history of type 2 diabetes, previously on metformin given as 500 mg b.i.d., and glipizide at 10 mg once daily, history of hypertension and dyslipidemia. FAMILY HISTORY: Positive for diabetes and hypertension. SOCIAL HISTORY: The patient has supportive family. No known substance use. REVIEW OF SYSTEMS: Admits to bifrontal headaches with visual blurring and also episodic bouts of dizziness and lightheadedness, worse on the day of admission. Her energy level has been suboptimal with easy fatigability and tiredness. No chest pains or palpitations or PND. Her oral intake has been variable with nausea, dyspepsia and admits to marked polyuria, nocturia, and polydipsia. PHYSICAL EXAMINATION: GENERAL: An overweight female, in no apparent distress. VITAL SIGNS: Blood pressure of 150/90, pulse of 100 beats per minute, regular, temperature 98, respirations 20, height is 5 feet 3 inches, weight is 206 pounds. HEENT: Head, normocephalic. Eyes anicteric with pink conjunctivae. Fundoscopy not possible at this time. Ears, nose and throat otherwise normal. NECK: Supple. Thyroid gland is normal in size. No carotid bruits or cervical adenopathy. CARDIOPULMONARY: Some adynamic precordium. S1, S2 are rapid and regular. LUNGS: Clear to auscultation. ABDOMEN: Flat, soft with positive bowel sounds. EXTREMITIES: No peripheral edema. Pulses are +2 bilaterally. LABORATORY DATA: Her chemistry showed BUN of 25. Sodium 135, potassium 4, chloride 100, CO2 of 23, glucose 247, and creatinine 0.9. Her glucose levels have ranged from (8-400) and 439 mg/dL. It was 433 at dinnertime today and 260 at bedtime tonight. Her hemoglobin A1c is 11.9%. ASSESSMENT: This is a 48-year-old female with uncontrolled and decompensated type 2 insulin-requiring diabetes with marked hyperglycemic accelerations and clearly also a suboptimal metabolic control of her diabetic condition even prior to this admission with a markedly elevated A1c level as noted. 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 PLAN OF MANAGEMENT: We will initiate a basal and bolus insulin regimen, which is more physiologic to optimize metabolic control. We will start her with Levemir given as 24 units subcu at bedtime daily to start tonight. We will also add Humalog given as 12 units t.i.d. before meals to start today as ordered. We will modify the coverage scale to obviate hypoglycemia and detailed orders have been given. We will initiate diabetic education to include insulin self-administration and glucose monitoring as noted. We will also obtain a Dietary evaluation for nutritional counseling and healthier food choices with weight loss efforts as noted. We will follow this. We will continue the IV hydration and obtain serial chemistries and supplement accordingly as needed. Whitney Kennedy MD
--- NOTE | 2018-10-04 07:41 | CP.PCM.PN ---
Subjective - Date & Time of Evaluation Date of Evaluation: 10/04/18 Time of Evaluation: 07:41 - Subjective Subjective: PGY-[address] Kennedy endo Pt was on heart health diet without carb count. LLQ mild tenderness. chronic. R shoulder and arm pain, sharp. Objective - Vital Signs/Intake and Output Vital Signs (last 24 hours): Temp Pulse Resp BP Pulse Ox 97.7 F 68 18 135/78 97 10/04/18 05:24 10/04/18 05:24 10/04/18 05:24 10/04/18 05:24 10/04/18 05:24 Intake and Output: 10/04/18 10/04/18 06:59 18:59 Intake Total 1080 Output Total 4 Balance 1076 - Medications Medications: Current Medications Aspirin (Ecotrin) 81 mg PO DAILY [facility] Atorvastatin Calcium (Lipitor) 10 mg PO DIN [facility] Last Admin: 10/03/18 17:57 Dose: 10 mg Famotidine (Pepcid) 40 mg PO HS [facility] Insulin Detemir (Levemir) 24 unit SC HS [facility] Insulin Human Lispro (Humalog Low) 0 units SC ACHS [facility]; Protocol Insulin Human Lispro (Humalog) 12 units SC AC [facility] - Labs Labs: 10/03/18 06:30 10/03/18 06:30 PT 12.9 SECONDS (9.4-12.5) H 10/02/18 09:11 INR 1.14 10/02/18 09:11 APTT 32.2 Seconds (26.9-38.3) 10/02/18 09:11 - Constitutional Appears: No Acute Distress - Head Exam Head Exam: ATRAUMATIC, NORMAL INSPECTION, NORMOCEPHALIC - Eye Exam Eye Exam: EOMI, Normal appearance, PERRL. absent: Scleral icterus Pupil Exam: NORMAL ACCOMODATION - ENT Exam ENT Exam: Mucous Membranes Moist - Neck Exam Additional comments: supple - Respiratory Exam Respiratory Exam: Clear to Ausculation Bilateral. absent: Rales, Rhonchi, Wheezes - Cardiovascular Exam Cardiovascular Exam: REGULAR RHYTHM, +S1, +S2 - GI/Abdominal Exam GI & Abdominal Exam: Soft, Tenderness (mild LLQ), Normal Bowel Sounds Additional comments: No suprapubic tenderness - Exam Additional comments: b/l breast symmetric, normal skin, No Nipple changes, No Dimpling, No nodules appreciated - Extremities Exam Extremities Exam: absent: Calf Tenderness, Pedal Edema - Back Exam Back Exam: absent: CVA tenderness (L), CVA tenderness (R) - Neurological Exam Neurological Exam: Alert, Awake, CN II-XII Intact, Oriented x3 Neuro motor strength exam: Left Upper Extremity: 5, Right Upper Extremity: 5, Left Lower Extremity: 5, Right Lower Extremity: 5 - Psychiatric Exam Psychiatric exam: Normal Affect, Normal Mood - Skin Skin Exam: Dry, Warm Assessment and Plan - Assessment and Plan (Free Text) Plan: Ms Story, 48F, with PMHx HTN, DM woke up from sleep for headache and acute L weakness and numbness, acute speech disturbance, left sided face numbness. Code stroke was called; NIHSS 4. CT brain and CTA-head unremarkable. Pt is not a candidate for tPA due to beyond 4.5 hrs. Ddx is stroke vs complex migraine headache. For stroke, Neuro started antiplatelet therapy (aspirin, lipitor, s/p plavix x 1). For migraine, neuro started depakote 500mg, magnesium sulfate, and decadron 10mg. DM2, A1C 11.9, Uncontrolled and decompensated Marked hyperglycemic acceration - Start Levemir 24u HS, Humalog 12 ACTID - ISSS that starts BS above 300 - Diabetic education to self- administration insulin - Dietitian insurance counselor for nutritional counseling with weight loss and healthier food choice - continue IV hydration - Will change to Heart healthy diet with moderate carb consist - TSH normal Stroke - Physical therapy recommended home with gym - ASA/Lipitor per neuro Breast tenderness - mammogram (04/2018) birads 1, dense tissue - yearly mammogram and follow up outpatient Atypical chest pain - Had ruled out ACS per primary - stress test in 4 weeks (due to recent TIA). - Echo done and showed LVEF 60-65%, trace aortic/mitral/tricuspid/pulmonic valve regurgitation. Fe Deficiency anemia - manage and work up per primary team. Need outpatient follow up with primary. s/r/d/w Dr Kennedy
[2018-10-04] MEDS: Insulin Lispro (humaLOG) LOW Coverage SC SCH ×4 (09:25→21:46)
--- NOTE | 2018-10-04 09:25 | CP.PCM.PN ---
Subjective - Date & Time of Evaluation Date of Evaluation: 10/04/18 Time of Evaluation: 07:50 - Subjective Subjective: Ta Han DO, PGY-2: Neurology Progress Note for Dr. Bah Patient was seen and examined at bedside. Patient reports no numbness or ti ngling affecting the left side or any speech difficulties. She reports near resolution of her headache. She denies any severe headache or seizure like episodes. Objective - Vital Signs/Intake and Output Vital Signs (last 24 hours): Temp Pulse Resp BP Pulse Ox 97.7 F 68 18 135/78 97 10/04/18 05:24 10/04/18 05:24 10/04/18 05:24 10/04/18 05:24 10/04/18 05:24 Intake and Output: 10/04/18 10/04/18 06:59 18:59 Intake Total 1080 Output Total 4 Balance 1076 - Medications Medications: Current Medications Aspirin (Ecotrin) 81 mg PO DAILY [facility] Atorvastatin Calcium (Lipitor) 10 mg PO DIN [facility] Last Admin: 10/03/18 17:57 Dose: 10 mg Famotidine (Pepcid) 40 mg PO HS [facility] Insulin Detemir (Levemir) 24 unit SC HS [facility] Insulin Human Lispro (Humalog Low) 0 units SC ACHS [facility]; Protocol Insulin Human Lispro (Humalog) 12 units SC AC [facility] - Labs Labs: 10/03/18 06:30 10/03/18 06:30 PT 12.9 SECONDS (9.4-12.5) H 10/02/18 09:11 INR 1.14 10/02/18 09:11 APTT 32.2 Seconds (26.9-38.3) 10/02/18 09:11 - Constitutional Appears: Non-toxic, No Acute Distress - Head Exam Head Exam: ATRAUMATIC, NORMOCEPHALIC - Eye Exam Eye Exam: EOMI, Normal appearance - ENT Exam ENT Exam: Mucous Membranes Moist - Neck Exam Neck Exam: Normal Inspection - Respiratory Exam Respiratory Exam: NORMAL BREATHING PATTERN. absent: Accessory Muscle Use - Cardiovascular Exam Cardiovascular Exam: RRR, +S1, +S2 - GI/Abdominal Exam GI & Abdominal Exam: Soft. absent: Rebound - Extremities Exam Extremities Exam: Normal Inspection. absent: Calf Tenderness - Neurological Exam Neurological Exam: Alert, Awake, CN II-XII Intact, Oriented x3 Neuro motor strength exam: Left Upper Extremity: 5, Right Upper Extremity: 5, Left Lower Extremity: 5, Right Lower Extremity: 5 Additional comments: sensation equal and symmetric - Psychiatric Exam Psychiatric exam: Normal Affect, Normal Mood - Skin Skin Exam: Dry, Intact, Normal Color, Warm Assessment and Plan - Assessment and Plan (Free Text) Assessment: Assessment & Plan (1) Transient ischemic attack Assessment and Plan: The patient does not currently have any symptoms. Her headache is gone, speech is normal and she has full sensation of the left side. She may have had a TIA or possibly a complicated migraine headache. Will continue dual antiplatelet therapy, high dose statin. MRI of the brain without contrast showed no abnormalities. As always, thank you for allowing us to participate in the care of this patient. Please recall if needed. Case was reviewed and discussed with attending physician, Dr. Bah
[2018-10-04] MEDS: Insulin Lispro 1 UNITS/0.01 ML SC SCH ×3 (09:30→17:47)
[2018-10-04] MEDS ORDERED: GlipiZIDE 10 mg SR Tab PO SCH (10:00)
--- NOTE | 2018-10-04 16:32 | CP.PCM.CON ---
<Janes Flores - Last Filed: 10/04/18 16:29> History of Present Illness - History of Present Illness History of Present Illness: PGY4 GI fellow consult note 48-year-old black female with a history of diabetes (uncontrolled A1c 11.9), hypertension, headaches who presented on 10/02 for TIA symptoms that have since self resolved. GI later consulted for abdominal pain. She reports intermittent left upper quadrant, stabbing pain for years. She states symptoms would come and go lasting for a few seconds to a few minutes without clear precipitating or alleviating factors. She described no significant change with by mouth intake. She denied any weight loss, dysphagia, nausea, vomiting, melena nor hematochezia. She does state that her blood sugars have been uncontrolled in the 300s at home. She had an EGD done in April 2017 that showed LAD esophagitis, small hiatal hernia and a biopsy negative gastric ulcer. Colonoscopy was also done at that time showed internal and external hemorrhoids, diverticulosis. 12 point review of systems negative other than stated above Medical history: See above Surgical history: C-sections Medications: Prior to admission was noncompliant with medications Family history: Denied GI or colorectal cancer Social history: Denied 3 Allergies: No known drug allergies Past Patient History - Infectious Disease Hx of Infectious Diseases: None - Tetanus Immunizations Tetanus Immunization: Unknown - Past Medical History & Family History Past Medical History?: Yes - Past Social History Smoking Status: Never Smoked - CARDIAC Hx Hypertension: Yes - PULMONARY Hx Respiratory Disorders: No - NEUROLOGICAL Hx Neurological Disorder: No - HEENT Hx HEENT Problems: No - RENAL Hx Chronic Kidney Disease: No - ENDOCRINE/METABOLIC Hx Diabetes Mellitus Type 2: Yes - HEMATOLOGICAL/ONCOLOGICAL Hx Blood Disorders: No - INTEGUMENTARY Hx Dermatological Problems: No - MUSCULOSKELETAL/RHEUMATOLOGICAL Hx Musculoskeletal Disorders: No - GASTROINTESTINAL Hx Gastrointestinal Disorders: No - GENITOURINARY/GYNECOLOGICAL Hx Genitourinary Disorders: No - PSYCHIATRIC Hx Depression: No Hx Substance Use: No - SURGICAL HISTORY Hx Section: Yes Hx Dilation and Curettage: Yes - ANESTHESIA Hx Anesthesia: Yes Hx Anesthesia Reactions: No Hx Malignant Hyperthermia: No Meds Allergies/Adverse Reactions: Allergies Allergy/AdvReac Type Severity Reaction Status Date / Time No Known Allergies Allergy Verified 11/15/17 11:45 - Medications Medications: Current Medications Aspirin (Ecotrin) 81 mg PO DAILY [facility] Last Admin: 10/04/18 12:43 Dose: 81 mg Atorvastatin Calcium (Lipitor) 10 mg PO DIN [facility] Last Admin: 10/03/18 17:57 Dose: 10 mg Famotidine (Pepcid) 40 mg PO HS [facility] Insulin Detemir (Levemir) 24 unit SC HS [facility] Insulin Human Lispro (Humalog Low) 0 units SC ACHS [facility]; Protocol Last Admin: 10/04/18 12:34 Dose: Not Given Insulin Human Lispro (Humalog) 12 units SC AC [facility] Last Admin: 10/04/18 12:43 Dose: 12 units Physical Exam - Constitutional Appears: Well, No Acute Distress - Head Exam Head Exam: ATRAUMATIC, NORMAL INSPECTION - Eye Exam Eye Exam: EOMI. absent: Scleral icterus - ENT Exam ENT Exam: Mucous Membranes Moist. absent: Mucous Membranes Dry - Respiratory Exam Respiratory Exam: Clear to Auscultation Bilateral, NORMAL BREATHING PATTERN. absent: Accessory Muscle Use - Cardiovascular Exam Cardiovascular Exam: REGULAR RHYTHM, RRR - GI/Abdominal Exam GI & Abdominal Exam: Normal Bowel Sounds, Soft. absent: Bruit, Diminished Bowel Sounds, Distended, Firm, Guarding, Hernia, Mass, Organomegaly, Pulsatile Mass, Rebound, Rigid, Tenderness Additional comments: body habitus limiting exam - Extremities Exam Extremities exam: Positive for: normal inspection. Negative for: pedal edema - Neurological Exam Neurological exam: Alert, Oriented x3 - Psychiatric Exam Psychiatric exam: Normal Affect, Normal Mood - Skin Skin Exam: Normal Color, Warm Results - Vital Signs Recent Vital Signs: Last Vital Signs Temp 97.7 F 10/04/18 12:00 Pulse 67 10/04/18 12:00 Resp 20 10/04/18 12:00 BP 145/88 10/04/18 12:00 Pulse Ox 97 10/04/18 05:24 - Labs Result Diagrams: 10/03/18 06:30 10/03/18 06:30 Labs: Laboratory Results - last 24 hr 10/03/18 10/03/18 10/04/18 16:34 21:33 07:19 POC Glucose (mg/dL) 433 H* 260 H 225 H 10/04/18 10/04/18 11:57 16:11 POC Glucose (mg/dL) 185 H 192 H Assessment & Plan - Assessment and Plan (Free Text) Assessment: 48-year-old black female with history of diabetes, hypertension, headaches presenting with TIA. GI later consulted for abdominal pain. #Abdominal pain: Exact etiology unclear but highest of the differential would be gastroparesis at this time giving symptoms and the setting of an uncontrolled diabetic. Also with history of LA B esophagitis and in the setting of worsening diabetes always concern for pancreatic etiologies. Lastly, patient had previous been constipated which could have been contributing to symptoms. #History of erosive esophagitis #Small hiatal hernia Plan: Pancreatic protocol CT Small frequent meals Bowel regimen with MiraLAX PPI -Strict glycemic control Patient seen and examined with Dr. Sevilla. Please see a physician for further recommendations/changes <Stoney Sevilla V - Last Filed: 10/04/18 22:46> Meds - Medications Medications: Current Medications Acetaminophen (Tylenol 325mg Tab) 650 mg PO Q6H PRN PRN Reason: Pain, moderate (4-7) Last Admin: 10/04/18 18:19 Dose: 650 mg Aspirin (Ecotrin) 81 mg PO DAILY [facility] Last Admin: 10/04/18 12:43 Dose: 81 mg Atorvastatin Calcium (Lipitor) 10 mg PO DIN [facility] Last Admin: 10/04/18 17:47 Dose: 10 mg Insulin Detemir (Levemir) 24 unit SC HS [facility] Last Admin: 10/04/18 21:44 Dose: 24 units Insulin Human Lispro (Humalog Low) 0 units SC ACHS [facility]; Protocol Last Admin: 10/04/18 21:46 Dose: Not Given Insulin Human Lispro (Humalog) 12 units SC AC [facility] Last Admin: 10/04/18 17:47 Dose: 12 units Pantoprazole Sodium (Protonix Ec Tab) 20 mg PO 0600 [facility] Polyethylene Glycol (Miralax) 17 gm PO DAILY [facility] Results - Vital Signs Recent Vital Signs: Last Vital Signs Temp 98.3 F 10/04/18 18:00 Pulse 75 10/04/18 18:00 Resp 20 10/04/18 18:00 BP 123/73 10/04/18 18:00 Pulse Ox 97 10/04/18 18:00 - Labs Result Diagrams: 10/03/18 06:30 10/03/18 06:30 Labs: Laboratory Results - last 24 hr 10/04/18 10/04/18 10/04/18 07:19 11:57 16:11 POC Glucose (mg/dL) 225 H 185 H 192 H 10/04/18 21:38 POC Glucose (mg/dL) 253 H Attending/Attestation - Attestation I have personally seen and examined this patient.: Yes I have fully participated in the care of the patient.: Yes I have reviewed all pertinent clinical information: Yes Notes (Text): This patient was seen and evaluated along with the GI fellow earlier. This is an addendum to the GI consultation report dictated by the fellow. Patient complaining of left upper quadrant discomfort and also some epigastric discomfort. Previous endoscopy reports reviewed patient was found to have LA grade B esophagiTIS. Continue PPI Close follow-up of the hemoglobin 10/04/18 22:42
--- NOTE | 2018-10-04 19:15 | PN ---
DATE: 10/04/2018 SUBJECTIVE: The patient came in on 10/02/2018 with numbness to the left side, chest pain. She has a past medical history of syncope with collapse, ovarian cyst, diabetes mellitus type 2, obesity, hypertension. I saw the patient at the bedside today. She was alert and oriented x3. She denied shortness of breath, abdominal pain, hematuria, hematochezia, dysuria, she did report some intermitten chest pain with radiation to the right arm as early as last night with some numbness. The patient remains on tele. PHYSICAL EXAMINATION: GENERAL: The patient appeared in no acute distress; however, she is still complaining of chest pain, . VITAL SIGNS: Temperature 97.7, pulse rate 57, blood pressure 145/88, respirations 20 on room air. HEENT: Normocephalic. PERRLA. Mucous membranes moist. NECK: Supple. Normal inspection. RESPIRATORY: Clear to auscultation. No wheeze, no rhonchi. CARDIOVASCULAR: S1, S2. No murmur, no gallop. No JVD. No edema. GASTROINTESTINAL: Abdomen soft, nontender. No guarding. No tenderness. No organomegaly. PERIPHERAL VASCULAR: The patient is moving all extremities. No calf tenderness. No cyanosis. No edema. NEUROLOGIC: The patient is alert and oriented x3. Cranial nerves II through XII intact. MEDICATIONS: Aspirin 81 mg p.o., Lipitor 10 mg, Pepcid 40 mg h.s. The patient is getting a.c. and h.s. Accu-Cheks with insulin Lispro coverage; Levemir 24 units at night. LABORATORY DATA: White blood cells 8, hemoglobin 11.6, hematocrit 34.1. Glucose 185. Last labs on 10/03/2018, sodium was 135, potassium 4, BUN 25, GFR over 60, cholesterol was 212. ASSESSMENT AND PLAN: chest pain, numbness/tingling to right hand, DM, HTN. The patient remains on tele. will monitor medication list and follow up with Cardiology and Pulmonology, Once cleared by both specialities;We will plan for discharge with meds at bedside. She continues with Lipitor, aspirin daily, Levemir 24 at bedtime. We will follow up. ALL ABOVE NOTED . D/D WITH ARBORIST REPRESENTATIVE , AGREED ALL ABOVE , ESPECIALL TREATMENT PLAN , WILL F/U . Joseph Appiah APN Tricia Mckenzie MD MTDReal
[2018-10-04] MEDS ORDERED: Alum-Mag Hydrox-Simethicone Susp (30 mL) PO ONE (21:25)
[2018-10-04] MEDS ORDERED: Insulin Detemir 100 units/ml Vial (Levemir) SC SCH (22:00)
[2018-10-05 05:38] VITALS: TEMP 98.3
[2018-10-05] MEDS ORDERED: Pantoprazole 20 mg EC Tab PO SCH (06:00)
[2018-10-05] MEDS: Insulin Lispro (humaLOG) LOW Coverage SC SCH ×2 (07:30→11:54)
[2018-10-05] MEDS: Insulin Lispro 1 UNITS/0.01 ML SC SCH ×2 (07:40→12:04)
--- NOTE | 2018-10-05 07:46 | CP.PCM.PN ---
Subjective - Date & Time of Evaluation Date of Evaluation: 10/05/18 Time of Evaluation: 06:30 - Subjective Subjective: Awake, sitting on chair, denies chest pain Reason for consultation and follow up: Cardiac evaluation of chest pain (breast pain), admitted for numbness of left side of body, ruled out acute coronary syndrome Seen and examined by me and Dr. Haney Objective - Vital Signs/Intake and Output Vital Signs (last 24 hours): Temp Pulse Resp BP Pulse Ox 98.3 F 75 20 119/77 96 10/05/18 05:36 10/05/18 05:36 10/05/18 05:36 10/05/18 05:36 10/05/18 05:36 Intake and Output: 10/05/18 10/05/18 06:59 18:59 Intake Total 1980 Output Total 8 Balance 1972 - Medications Medications: Current Medications Acetaminophen (Tylenol 325mg Tab) 650 mg PO Q6H PRN PRN Reason: Pain, moderate (4-7) Last Admin: 10/04/18 18:19 Dose: 650 mg Aspirin (Ecotrin) 81 mg PO DAILY [facility] Last Admin: 10/04/18 12:43 Dose: 81 mg Atorvastatin Calcium (Lipitor) 10 mg PO DIN [facility] Last Admin: 10/04/18 17:47 Dose: 10 mg Insulin Detemir (Levemir) 24 unit SC HS [facility] Last Admin: 10/04/18 21:44 Dose: 24 units Insulin Human Lispro (Humalog Low) 0 units SC ACHS [facility]; Protocol Last Admin: 10/05/18 07:30 Dose: Not Given Insulin Human Lispro (Humalog) 12 units SC AC [facility] Last Admin: 10/05/18 07:40 Dose: 12 units Pantoprazole Sodium (Protonix Ec Tab) 20 mg PO 0600 [facility] Last Admin: 10/05/18 05:27 Dose: 20 mg Polyethylene Glycol (Miralax) 17 gm PO DAILY [facility] - Labs Labs: 10/03/18 06:30 10/03/18 06:30 PT 12.9 SECONDS (9.4-12.5) H 10/02/18 09:11 INR 1.14 10/02/18 09:11 APTT 32.2 Seconds (26.9-38.3) 10/02/18 09:11 Assessment and Plan - Assessment and Plan (Free Text) Assessment: A 48 year old obese female who came in to the ER due to numbness of left side of body. While in 2R she complained of chest pain but more of breast pain. She had mammogram prior to this admission and was told that she has galactocele and milk collected there and causing tenderness. History of hypertension , diabetes, C- section, dilatation and currettage. Troponin negative, CT of head negative for bleeding. Neuro on consult. Atypical chest pain. Ruled out acute coronary syndrome. Given multiple risk factors, for stress test in 4 weeks (due to recent TIA). Discontinued telemetry. Constipated. Echo done and showed LVEF 60-65%, trace aortic/mitral/tricuspid/pulmonic valve regurgitation. Constipated, Complaints of abdominal pain yesterday and GI on consult. May discharge if cleared by Neurology from cardiac standpoint. Plan: Cardiac status stable Stress test in 4 weeks due to recent TIA No distress, constipated GI on consult for abdominal pain yesterday Heart rate controlled Blood pressure controlled Continue current treatment Discharge planning Lifestyle modification Weight reduction Glucose control Will follow up Plan and treatment discussed with Dr. Haney
--- NOTE | 2018-10-05 08:18 | CP.PCM.PN ---
Subjective - Date & Time of Evaluation Date of Evaluation: 10/05/18 Time of Evaluation: 08:17 - Subjective Subjective: PGY-3 for dawson Leavitt Pt sitting comfortably in chair, enjoyed breakfast. LUQ abdominal pain improves. R shoulder pain improves. No acute complaint Objective - Vital Signs/Intake and Output Vital Signs (last 24 hours): Temp Pulse Resp BP Pulse Ox 98.3 F 75 20 119/77 96 10/05/18 05:36 10/05/18 05:36 10/05/18 05:36 10/05/18 05:36 10/05/18 05:36 Intake and Output: 10/05/18 10/05/18 06:59 18:59 Intake Total 1980 Output Total 8 Balance 1972 - Medications Medications: Current Medications Acetaminophen (Tylenol 325mg Tab) 650 mg PO Q6H PRN PRN Reason: Pain, moderate (4-7) Last Admin: 10/04/18 18:19 Dose: 650 mg Aspirin (Ecotrin) 81 mg PO DAILY [facility] Last Admin: 10/04/18 12:43 Dose: 81 mg Atorvastatin Calcium (Lipitor) 10 mg PO DIN [facility] Last Admin: 10/04/18 17:47 Dose: 10 mg Insulin Detemir (Levemir) 24 unit SC HS [facility] Last Admin: 10/04/18 21:44 Dose: 24 units Insulin Human Lispro (Humalog Low) 0 units SC ACHS [facility]; Protocol Last Admin: 10/05/18 07:30 Dose: Not Given Insulin Human Lispro (Humalog) 12 units SC AC [facility] Last Admin: 10/05/18 07:40 Dose: 12 units Pantoprazole Sodium (Protonix Ec Tab) 20 mg PO 0600 [facility] Last Admin: 10/05/18 05:27 Dose: 20 mg Polyethylene Glycol (Miralax) 17 gm PO DAILY [facility] - Labs Labs: 10/03/18 06:30 10/03/18 06:30 PT 12.9 SECONDS (9.4-12.5) H 10/02/18 09:11 INR 1.14 10/02/18 09:11 APTT 32.2 Seconds (26.9-38.3) 10/02/18 09:11 - Constitutional Appears: No Acute Distress - Head Exam Head Exam: ATRAUMATIC, NORMAL INSPECTION, NORMOCEPHALIC - Eye Exam Eye Exam: EOMI, Normal appearance, PERRL. absent: Scleral icterus Pupil Exam: NORMAL ACCOMODATION - ENT Exam ENT Exam: Mucous Membranes Moist - Neck Exam Additional comments: supple - Respiratory Exam Respiratory Exam: Clear to Ausculation Bilateral. absent: Rales, Rhonchi, Wheezes - Cardiovascular Exam Cardiovascular Exam: REGULAR RHYTHM, +S1, +S2 - GI/Abdominal Exam GI & Abdominal Exam: Soft, Normal Bowel Sounds. absent: Guarding, Rigid, Tenderness - Extremities Exam Extremities Exam: absent: Calf Tenderness - Back Exam Back Exam: absent: CVA tenderness (L), CVA tenderness (R) - Neurological Exam Neurological Exam: Alert, Awake, CN II-XII Intact, Oriented x3 - Psychiatric Exam Psychiatric exam: Normal Affect, Normal Mood - Skin Skin Exam: Dry, Warm Assessment and Plan - Assessment and Plan (Free Text) Plan: Ms Story, 48F, with PMHx HTN, DM woke up from sleep for headache and acute L weakness and numbness, acute speech disturbance, left sided face numbness. Code stroke was called; NIHSS 4. CT brain and CTA-head unremarkable. Pt is not a candidate for tPA due to beyond 4.5 hrs. Ddx is stroke vs complex migraine headache. For stroke, Neuro started antiplatelet therapy (aspirin, lipitor, s/p plavix x 1). For migraine, neuro started depakote 500mg, magnesium sulfate, and decadron 10mg. DM2, A1C 11.9, Uncontrolled and decompensated Marked hyperglycemic acceration - Start yesterday: Levemir 24u HS, Humalog 12 ACTID - ISSS that starts BS above 300 - Diabetic education to self- administration insulin - Dietitian anger control counselor for nutritional counseling with weight loss and healthier food choice - Heart healthy diet with moderate carb consist - TSH normal Stroke - Physical therapy recommended home with gym - ASA/Lipitor per neuro Breast tenderness - mammogram (04/2018) birads 1, dense tissue - yearly mammogram and follow up outpatient Atypical chest pain - Had ruled out ACS per primary - stress test in 4 weeks (due to recent TIA). - Echo done and showed LVEF 60-65%, trace aortic/mitral/tricuspid/pulmonic valve regurgitation. Fe Deficiency anemia - manage and work up per primary team. Need outpatient follow up with primary. s/r/d/w Dr Kennedy
[2018-10-05] MEDS ORDERED: POLYETHYLENE GLYCOL 3350 17 GM/Dose PACKET PO SCH (10:00)
[2018-10-05 10:05] VITALS: BP 124/79; PULSE 71; RESP 18; O2SAT 97
--- NOTE | 2018-10-05 11:09 | CT ---
Pancreatic protocol CT Indication: Abd pain, diabetes Technique: Contiguous axial images of the abdomen without & with IV contrast utilizing pancreatic protocol. Coronal and Sagittal reformats generated and reviewed. This CT exam was performed using 1 or more of the following dose reduction techniques: Automated exposure control, adjustment of the MAA and/or kV according to patient size, and/or use of iterative reconstruction technique. Contrast: Oral contrast was administered. 90 mm omnipaque 300 mg injected. Radiation dose: Total exam DLP = 1939.22 MGy-cm. Comparison: CT abdomen and pelvis without contrast performed 04/04/15 Findings: Visualized portions of the heart appear within normal limits of size. There is no visible consolidation, pleural effusion, or pneumothorax. Hepatomegaly. Punctate bilateral nonobstructing renal calculi. The liver, spleen, kidneys, pancreas, adrenal glands, and gallbladder appear otherwise unremarkable. The stomach is nondistended. The bowel loops appear within normal limits of caliber without evidence of intestinal obstruction. There is no definite free air. Prominent subcentimeter retroperitoneal adenopathy, nonspecific. Uterus is present. Numerous regions of enhancement within the uterus measuring up to 1.8 cm at the right uterine body favored to reflect fibroids. Under distention of the urinary bladder limits evaluation. No acute osseous abnormality is detected. Impression: No discrete pancreatic abnormality identified. Hepatomegaly. Punctate nonobstructing bilateral renal calculi. Prominent subcentimeter retroperitoneal adenopathy, nonspecific. Evidence of fibroid uterus.
--- NOTE | 2018-10-05 12:12 | CP.PCM.PCO ---
Addendum Addendum: Patient defers on psychiatric intervention at this time and was not aware a psychiatric consultation was requested. She is oriented x3, denies SI/HI or any perceptual disturbance. No major behavioral issues. Patient is not a danger to herself or others and this provider will sign off. 10/05/18 12:10
--- NOTE | 2018-10-06 00:24 | PN ---
DATE: 10/05/2018 LOCATION: Room 272. SUBJECTIVE: This is a 48-year-old female with recent uncontrolled type 2 insulin-requiring diabetes, presenting here with marked hyperglycemic accelerations and also a sudden onset of left hemipareses with left facial palsy and apparent improvement and resolution of the aforementioned neurological manifestations thereof. She has been evaluated to have a possible transient ischemic event as noted. Her glycemic levels, however, are fluctuating but improved overnight, and the glucose values have ranged from 153 to 164 mg/dL. It was 253 at bedtime last night as noted. Her A1c was reported as quite elevated at 11.9% indicative of suboptimal metabolic control of her diabetic condition prior to this admission. Her chemistry showed a BUN of 25, sodium 135, potassium 4, chloride 100, CO2 of 23, glucose 247, and creatinine 0.9. ASSESSMENT: This is a 48-year-old female with uncontrolled and decompensated type 2 insulin-requiring diabetes with a transient ischemic event with underlying cerebrovascular disease as noted. There is a very high risk of recurrence of the aforementioned as noted. She also has macrovascular complications of coronary artery disease and peripheral vasculopathy as noted. PLAN OF MANAGEMENT: We will continue the modified basal and bolus insulin regimen to allow for dose equilibration and keep her on the Humalog given as 12 units t.i.d. before meals to start today as ordered. We will also continue the basal insulin given as Levaquin at 24 units subcu at bedtime daily as given. We will titrate incrementally as indicated to optimize metabolic control. We will follow and advised accordingly. Whitney Kennedy MD
== END 2018-10-05 14:10 | disposition home or self-care (01) | DRG 69 ==
LOC: ED 08:47 → ERH 10:36 → 2RSO 12:24
PROVIDERS: ADMIT Internal Medicine; ATTEND Internal Medicine
DX: G45.9 Transient cerebral ischemic attack, unspecified (principal); G43.109 Migraine with aura, not intractable, without status migrainosus; E11.65 Type 2 diabetes mellitus with hyperglycemia; I10 Essential (primary) hypertension; R47.9 Unspecified speech disturbances; N64.89 Other specified disorders of breast; N64.4 Mastodynia; R07.89 Other chest pain; D50.9 Iron deficiency anemia, unspecified; K20.9 Esophagitis, unspecified; K57.90 Diverticulosis of intestine, part unspecified, without perforation or abscess without bleeding; K44.9 Diaphragmatic hernia without obstruction or gangrene; K59.00 Constipation, unspecified; K64.4 Residual hemorrhoidal skin tags; K64.8 Other hemorrhoids; I37.1 Nonrheumatic pulmonary valve insufficiency; E78.5 Hyperlipidemia, unspecified; D64.9 Anemia, unspecified; R29.704 NIHSS score 4; E66.9 Obesity, unspecified; Z68.37 Body mass index [BMI] 37.0-37.9, adult; Z91.14 Patient's other noncompliance with medication regimen; Z79.82 Long term (current) use of aspirin; Z79.84 Long term (current) use of oral hypoglycemic drugs; Z82.49 Family history of ischemic heart disease and other diseases of the circulatory system